=== PATIENT | female | born 1990 | race African-American/Black ===

== ENCOUNTER 2023-09-23 21:07 | Emergency (ER) | payer MEDICAID, SELFPAY ==
[2023-09-23 21:10] VITALS: BP 120/78; PULSE 95; TEMP 37.1; O2SAT 97; BMI 42.6
--- NOTE | 2023-09-23 21:28 | ED.GENADUL1 ---
HPI HPI - General Adult General Chief complaint: Extremity Problem, Nontraumatic Stated complaint: Upper Extremity Pain Time Seen by Provider: 09/23/23 21:10 Source: patient Mode of arrival: walk-in Limitations: no limitations History of Present Illness HPI narrative: 33-year-old female to the emergency department chief complaint of pain to the medial left elbow. Patient reports symptoms started several days ago. It is worse with movement. She reports that she occasionally gets a zinging like hitting her funny bone down into her fingers. She reports that it started after she was throwing a ball at her nephews. She has never had this before. There is no fall or injury. She denies any redness or warmth. She denies any fever, sweats, chills. She is otherwise at her baseline health. She denies . Related Data Home Medications ?Medication ?Instructions ?Recorded ?Confirmed No Known Home Medications 09/23/23 09/23/23 Allergies Allergy/AdvReac Type Severity Reaction Status Date / Time No Known Drug Allergies Allergy Verified 09/23/23 21:13 Opioid HPI Opioid Management Most Recent Opioid Data: No Data to Display Review of Systems ROS Status of ROS 10 or more systems reviewed and unremarkable except as noted in history and below Exam Narrative Exam Narrative: VITALS: I have reviewed the triage vital signs. GENERAL: Well developed, well appearing adult in no acute distress. NEURO: Alert and oriented. Moves all extremities. Face is symmetric and expressive. Left upper Extremity: Radial Pulse is intact. Limb is similar color and temperature to the contralateral limb. Compartments soft. No edema. No ecchymosis. No laceration. No abrasion. No deformity. No bony tenderness. 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 Normal ROM of wrist, elbow, shoulder. There is mild tenderness over the medial epicondyle. SKIN: Warm and dry. Normal turgor. No rash or lesions appreciated. PSYCH: Mood, affect, and interaction is appropriate to the setting. Constitutional Vital Signs, click to edit/add: Last Vital Signs Temp 98.7 F 09/23/23 21:10 Pulse 95 H 09/23/23 21:10 Resp 18 09/23/23 21:10 BP 120/78 09/23/23 21:10 Pulse Ox 97 09/23/23 21:10 Course Vital Signs Vital signs: Vital Signs Temperature 98.7 F 09/23/23 21:10 Pulse Rate 95 H 09/23/23 21:10 Respiratory Rate 18 09/23/23 21:10 Blood Pressure 120/78 09/23/23 21:10 Pulse Oximetry 97 09/23/23 21:10 Temperature 98.7 F 09/23/23 21:10 Pulse Rate 95 H 09/23/23 21:10 Respiratory Rate 18 09/23/23 21:10 Blood Pressure 120/78 09/23/23 21:10 Pulse Oximetry 97 09/23/23 21:10 Medical Decision Making MDM Narrative Medical decision making narrative: 33-year-old female to the emergency department chief complaint of pain to her left medial elbow. Vital stable, the patient is afebrile. Tenderness to the area. Pain worsens with wrist flexion/ulnar deviation. Limb is neurovascularly intact. No indication for imaging at this time as there is no traumatic injury. Aleve, rest, and brace were discussed. Follow-up with orthopedics if not improving. Return precautions were discussed. All questions were answered. The patient was discharged home. Discharge Plan Discharge Stand Alone Forms: Portal Instructions Chief Complaint: Extremity Problem, Nontraumatic Clinical Impression: Epicondylitis elbow, medial Patient Disposition: Home, Self-Care Time of Disposition Decision: 21:23 Condition: Good Mode of Transportation: Private Vehicle Prescriptions / Home Meds: No Action No Known Home Medications Print Language: Polish Instructions: Tendinitis (ED) Additional Instructions: obtain a tennis elbow strap and use as discussed. Take Aleve for pain. Referrals: Physician,Non-Staff, [Primary Care Provider] - 1 week William Cook MD [Physician] - 1 week (Follow-up in 1 week if not improving)
[2023-09-23] MEDS: KETOROLAC TROMETHAMINE 30 MG/ML VIAL IM (21:33)
== END 2023-09-23 21:40 | disposition home or self-care (01) ==
PROVIDERS: Emergency Provider Student in an Organized Health Care Education/Training Program
DX: M77.12 Lateral epicondylitis, left elbow (principal)
CPT/HCPCS: 96372; 99284; J1885